=== PATIENT | female | born 1945 | race Caucasian/White ===

== ENCOUNTER 2020-10-08 19:21 | Inpatient (IN) | payer MEDICARE, OTHER ==
[~2020-10-08] VITALS: Ht 162.6 cm; Wt 134.1 kg
[2020-10-08 20:30] VITALS: BP 105/67; PULSE 133; TEMP 98.9
[2020-10-08] MEDS ORDERED: KLOR-CON SPRIN10 MEQ PO (20:31)
[2020-10-08] MEDS ORDERED: ELIQUIS 5MG PO (20:31)
[2020-10-08] MEDS ORDERED: PRINIVIL5 MG PO (20:31)
[2020-10-08] MEDS ORDERED: TIAZAC240 MG PO (20:32)
[2020-10-08] MEDS ORDERED: LASIX 40MG TABL40 MG PO (20:32)
[2020-10-08] MEDS ORDERED: LIPITOR 10MG10 MG PO (20:33)
[2020-10-08] MEDS ORDERED: ALBUTEROL0.83 MG/ML IH (20:34)
[2020-10-08] MEDS ORDERED: PLAVIX 75MG TAB75 MG PO (20:41)
[2020-10-08 20:47] LABS: CALCIUM 7.2 mg/dL (8.4-10.2); CREATININE, serum 10.53 (0.52-1.25); POTASSIUM 5.5 mmol/L (3.4-5.0)
[2020-10-08 21:16] LABS: ALBUMIN 3.3 gm/dL (3.5-5.0); BILIRUBIN,TOTAL 0.5 mg/dL (0.0-1.0); TOTAL PROTEIN 6.5 gm/dL (6.4-8.2)
[2020-10-08 22:30] VITALS: BP 106/83; PULSE 131
[2020-10-08 23:20] LABS: ARTERIAL BLD GAS TCO2 CT 14.9; ARTERIAL BLOOD GAS BASE EXCESS -12.9 (-2-2); ARTERIAL BLOOD GAS HCO3 13.8 meq/L (22-26); ARTERIAL BLOOD GAS PCO2 34.6 mmHg (35-45); ARTERIAL BLOOD GAS PO2 115.7 mmHg (80-100); ARTERIAL BLOOD GAS pH 7.22 (7.35-7.45)
--- NOTE | 2020-10-08 23:28 | NUR ---
Patient [place] [facility] [place] [facility] [place] to medical floor room 315 around 19:30 pm. Patient is very hardd of hearing. Patient alert and oriented to self only. Patient confused about time, place, and situation. Oriented patient to the room. Tyson catheter in place and draining dark tea color urine. +3 pitting edema to bilateral upper and lower extremities. Pannus, groin, and bottom have excoriation. Patient currently on oxygen 3L via NC. Breathing labored with inspiratory and expiratory wheezing noted. HR irregular with HR 130-140s. EKG shows A-fib RVR. Hospitalist HOLLI Alcocer made aware. Call light in reach. Will continue to monitor.
[2020-10-08 23:32] VITALS: BP 104/58; PULSE 149; TEMP 98.1
[2020-10-09] VITALS (691 sets, daily range): BP systolic 90–119; BP diastolic 40–44; PULSE 79–157; TEMP 97.5–99.7; O2SAT 76–100
[2020-10-09 01:00] LABS: ARTERIAL BLD GAS TCO2 CT 13.8; ARTERIAL BLOOD GAS BASE EXCESS -13.4 (-2-2); ARTERIAL BLOOD GAS HCO3 12.9 meq/L (22-26); ARTERIAL BLOOD GAS PCO2 31.3 mmHg (35-45); ARTERIAL BLOOD GAS pH 7.23 (7.35-7.45)
[2020-10-09 01:01] LABS: ARTERIAL BLOOD GAS PO2 150.5 mmHg (80-100)
[2020-10-09 02:16] LABS: COLLECTION METHOD CATHETER
[2020-10-09 02:17] LABS: MEAN CELL VOLUME 91 fl (80.0-100.0); MEAN CORPUSCULAR HGB CONC 32 g/dl (33.0-37.0); MEAN PLATELET VOLUME 9.3 fl (7.4-10.4); PLATELET COUNT 279 K/mm3 (130-400); REDCELL DISTRIBUTION WIDTH-CV 18.1 % (11.5-14.5)
[2020-10-09 02:21] LABS: HEMATOCRIT 26.3 % (37.0-47.0); HEMOGLOBIN 8.5 g/dl (12.5-16.0); MEAN CORPUSCULAR HEMOGLOBIN 29 pg (27.0-31.0)
[2020-10-09 02:24] LABS: INR 1.5 (0.8-3.0); PROTHROMBIN TIME 16.1 SECONDS (9.7-12.8)
[2020-10-09 02:25] LABS: MUCOUS Present /lpf; PH 5 (5-8); SQUAMOUS EPITHELIAL 0-2 /hpf; URINE APPEARANCE Cloudy; URINE BACTERIA Rare /hpf; URINE BILIRUBIN Negative (NEGATIVE); URINE BLOOD 3+ (NEGATIVE); URINE COLOR Yellow; URINE GLUCOSE Negative (NEGATIVE); URINE KETONE Negative (NEGATIVE); URINE LEUKOCYTE ESTERASE Trace (NEGATIVE); URINE NITRATE Negative (NEGATIVE); URINE PROTEIN(semi-quant) 2+ (NEGATIVE); URINE RBC >50 /hpf; URINE UROBILINOGEN Negative (NEGATIVE)
[2020-10-09 02:27] LABS: PARTIAL THROMBOPLASTIN TIME 31.5 SECONDS (26.0-37.0)
[2020-10-09 03:48] LABS: ANISOCYTOSIS 1+; BAND 10 % (0-10); HYPOCHROMIA 1+; LYMPHOCYTE 4 % (20.0-51.0); METAMYELOCYTE 1 % (0-0); NEUTROPHILS 84 % (42.0-75.2); POIKILOCYTOSIS 1+
[2020-10-09 03:49] LABS: OVALOCYTES 1+; PLATELET ESTIMATE NORMAL (NORMAL)
--- NOTE | 2020-10-09 04:24 | NUR ---
PATIENT ADMITTED TO ICU ROOM 6 AT 0032, TRANSFERRED TO ICU BED WITH 4 ASSIST CLEANED OF INCONTINENT LOOSE FOUL SMELLING BM AND RECTAL TUBE INSERTED AFTER EXPLAINING PROCEDURE TO PATIENT, TOLERATED WELL, BARRIER CREAM APPLIED TO MICHAEL AND BUTTOCKS AREA DUE TO DIFFUSE ERYTHEMA, LOWE CATHETER INTACT WITH CLOUDY YELLOW URINE PRESENT IN TUBING, PATIENT ALERT WITH EYES OPEN ORIENTED TO PERSON AND YEAR BUT UNABLE TO STATE MONTH, PLACE OR SITUATION. ABLE TO FOLLOW COMMANDS, AIR PUMPER EQUAL BUT WEAK ABLE TO PREFORM PUSH/PULL WITH BILATERAL LOWER EXTREMITIES BUT VERY WEAK, PERIPHERAL PULSES PALPABLE, PATIENT HEART RATE TACHYCARDIC ON MONITOR AND VIA AUSCULTATION, CHANDRAKANT RAZA PRESENT AND ORDERS BEING RECEIVED AND CARRIED OUT 0 ANESTHESIA AT BEDSIDE AND PLACED AT THIS TIME CONNECTED TO MONITOR, AND LEVELED 0238 SURGERY AT BEDSIDE AND PLACED CENTRAL LINE, PATIENT CONNECTED TO FOR CVP MONITORING WITH VALUE OF 18 REPORTED TO VIOLET STALLINGS ADDITIONAL ORDERS RECEIVED AND WILL BE INITIATED WHEN MEDICATIONS RECEIVED
[2020-10-09 04:52] LABS: ARTERIAL BLD GAS O2 SATURATION 96.3 % (92-100); ARTERIAL BLD GAS TCO2 CT 15.4; ARTERIAL BLOOD GAS BASE EXCESS -12.5 (-2-2); ARTERIAL BLOOD GAS HCO3 14.3 meq/L (22-26); ARTERIAL BLOOD GAS PCO2 36.1 mmHg (35-45); ARTERIAL BLOOD GAS PO2 89.1 mmHg (80-100); ARTERIAL BLOOD GAS pH 7.22 (7.35-7.45)
--- NOTE | 2020-10-09 05:00 | NUR ---
RESULTS OF ABG CALLED TO VIOLET RAZA APRN PER REQUEST
--- NOTE | 2020-10-09 07:20 | NUR ---
BEDSIDE SHIFT REPORT RECEIVED FROM ADRIANA ANNE. PATIENT IS RESTING COMFORTABLY IN BED WITH EYES OPEN. BICARB AND ALBUMIN RUNNING. VSS. LOWE CATHETER AND FECAL MANAGEMENT SYSTEM IN PLACE. TRIPLE LUMEN CATHETER AND ARTERIAL LIVE IN PLACE. ON BIPAP.
--- NOTE | 2020-10-09 07:48 | NUR ---
[address] RAMSEY DUE TO PATIENT'S B/P BEING LOW, UPDATED ON PATIENT HISTORY AND EVENTS UP TO THIS TIME, GIVEN VITAL SIGNS AND BRIEF ASSESSMENT, NEW ORDERS RECEIVED FOR ALBUMIN AND TO STOP BUMEX DRIP AT THIS TIME 0645 BUMEX DRIP STOPPED, AWAITING VERIFICATION BY PHARMACY FOR ALBUMIN INFUSION
--- NOTE | 2020-10-09 08:40 | NUR ---
SEAN MCDONALD FOR DR. MAR AT BEDSIDE. DISCUSSED PLAN OF CARE AND ABNORMAL LABS. RECOMMENDING DIALYSIS CATHETER PLACEMENT AND DIALIZING TODAY. SEAN FALCON WITH [facility] ALSO AT BEDSIDE. CALLED TO TELL ME THAT WE WILL BE DOING A NAPOLEON/CARDIOVERSION TODAY WELL.
--- NOTE | 2020-10-09 09:17 | NUR ---
DR. ROJAS AT BEDSIDE AND RECOMMENDING INTUBATION BECAUSE OF CONFUSION AND SOMNOLENCE. WILL BE CHANGING SOME BIPAP SETTINGS AND CHECKING ABGs AGAIN TODAY.
[2020-10-09 11:46] LABS: ARTERIAL BLD GAS O2 SATURATION 98.7 % (92-100); ARTERIAL BLD GAS TCO2 CT 15.1; ARTERIAL BLOOD GAS HCO3 14.2 meq/L (22-26); ARTERIAL BLOOD GAS PCO2 29.6 mmHg (35-45)
[2020-10-09 11:48] LABS: ARTERIAL BLOOD GAS PO2 135.2 mmHg (80-100)
--- NOTE | 2020-10-09 11:55 | NUR ---
CALLED PATIENT'S SISTER, JOSE, SHU TO MAINTAIN CONSENT FOR ALL OF PATIENT'S PROCEDURES TODAY. JOSE IS AGREEABLE TO BOTH PROCEDURES.
--- NOTE | 2020-10-09 15:00 | NUR ---
sanitation worker hosing machinery contacted patient's sister, Eugenie Perez #[phone] to discuss discharge planning. Patient is confused and not able to make her own decisions. Durable Power of sql developer forms are found in medical record and include making health and medical decisions. Eugenie stated that patient is and has four adult children (Aleksander Friend [phone], Florecita Friend [phone], Nik and Fabricio). Worker contacted Aleksander, who states he is aware that patient is hospitalized, however, hasn't spoken to his mother since her was 16 years old. Aleksander states that all of the children are estranged from patient and haven't spoken with her for over 10 years. Aleksander stated he was aware that patient's sister was her spokes person for decisions. sanitation worker hosing machinery spoke with sister, Eugenie, and confirmed that patient is homeless and cannot stay with Eugenie. Eugenie stated that she cannot come and visit from [place] as she does not have a car. Estela and social services had a goals of care conversation with Eugenie. Eugenie states she discussed patient's wishes previously when she was alert and patient stated she wanted to be DNR and did not want to be placed on a ventilator.
--- NOTE | 2020-10-09 15:20 | NUR ---
PERFORMED NAPOLEON/CARDIOVERSION ON PATIENT WITH HELP OF RADIOLOGY, TERRIE ANN PA AND ANESTHESIOLOGY. PATIENT'S SISTER AND DPOA HAD GIVEN VERBAL CONSENT FOR PROCEDURE. PROCEDURE BEGAN AT 1500 WITH PROPOFOL AND SUCCITYLCOLINE PUSHED. SHOCK WAS DELIVER AT 1502 WITH 200J AND PATIENT CONVERTED TO NORMAL SYNUS RHYTHM IN THE 80s. PROCEDURE WAS COMPLETED AT 1505.
--- NOTE | 2020-10-09 16:00 | NUR ---
UPDATED DR. ROJAS ON ABG RESULTS AND ON PROCEDURES DONE TODAY.
[2020-10-09 16:06] LABS: ARTERIAL BLD GAS O2 SATURATION 98.6 % (92-100); ARTERIAL BLD GAS TCO2 CT 16.6; ARTERIAL BLOOD GAS BASE EXCESS -9.7 (-2-2); ARTERIAL BLOOD GAS HCO3 15.6 meq/L (22-26); ARTERIAL BLOOD GAS pH 7.31 (7.35-7.45)
[2020-10-09 16:08] LABS: ARTERIAL BLOOD GAS PO2 123.5 mmHg (80-100)
[2020-10-09 16:47] LABS: MEAN CELL VOLUME 92 fl (80.0-100.0); MEAN CORPUSCULAR HGB CONC 32 g/dl (33.0-37.0); MEAN PLATELET VOLUME 9.5 fl (7.4-10.4); PLATELET COUNT 244 K/mm3 (130-400); RED BLOOD COUNT 2.77 M/mm3 (4.10-5.30); REDCELL DISTRIBUTION WIDTH-CV 17.8 % (11.5-14.5)
[2020-10-09 16:51] LABS: ALBUMIN 3.1 gm/dL (3.5-5.0); CALCIUM 7.1 mg/dL (8.4-10.2); CREATININE, serum 9.25 (0.52-1.25); POTASSIUM 4.7 mmol/L (3.4-5.0)
[2020-10-09 16:59] LABS: HEMATOCRIT 25.4 % (37.0-47.0); HEMOGLOBIN 8.2 g/dl (12.5-16.0); MEAN CORPUSCULAR HEMOGLOBIN 30 pg (27.0-31.0)
[2020-10-09 17:14] LABS: PHOSPHOROUS 8.8 mg/dL (2.5-4.5)
[2020-10-09] MEDS ORDERED: LANOXIN 0.25M0.25 MG PO (17:29)
[2020-10-09] MEDS ORDERED: TOPROL XL 25MG25 MG PO (17:32)
--- NOTE | 2020-10-09 18:23 | NUR ---
PATIENT TOLERATED HER 1ST HD TX WITH 700 ML FLUID REMOVAL TODAY. NEXT PLANNED HD TX TOMORROW, Friday10/10/20 @ 0800.
[2020-10-09 19:09] LABS: BAND 11 % (0-10); BURR CELLS 1+; LYMPHOCYTE 5 % (20.0-51.0); METAMYELOCYTE 2 % (0-0); MYELOCYTE 1 % (0-0); NEUTROPHILS 76 % (42.0-75.2); PLATELET ESTIMATE NORMAL (NORMAL)
[2020-10-09 19:11] LABS: HYPOCHROMIA 1+; OVALOCYTES 1+
[2020-10-09 22:30] LABS: HEPATITIS B SURFACE ANTIGEN Negative (Negative)
[2020-10-09 22:32] LABS: HEPATITIS B SURFACE ANTIBODY <2.0 (()); HEPATITIS C VIRUS ANTIBODY Negative (Negative)
[2020-10-10] VITALS (750 sets, daily range): BP systolic 90–1058; BP diastolic 53–72; PULSE 74–100; TEMP 97.8–98.9; O2SAT 71–100
--- NOTE | 2020-10-10 02:39 | NUR ---
PER DR. RAMSEY'S NOTE BUMEX GTT CONTINUES TO BE HELD, PATIENT B/P CONTINUES TO BE ON LOWER END OF NORMALS
[2020-10-10 03:59] LABS: MEAN CELL VOLUME 92 fl (80.0-100.0); MEAN CORPUSCULAR HGB CONC 33 g/dl (33.0-37.0); MEAN PLATELET VOLUME 9.8 fl (7.4-10.4); PLATELET COUNT 236 K/mm3 (130-400); RED BLOOD COUNT 2.75 M/mm3 (4.10-5.30); REDCELL DISTRIBUTION WIDTH-CV 17.7 % (11.5-14.5)
[2020-10-10 04:04] LABS: HEMATOCRIT 25.2 % (37.0-47.0); HEMOGLOBIN 8.2 g/dl (12.5-16.0); MEAN CORPUSCULAR HEMOGLOBIN 30 pg (27.0-31.0)
[2020-10-10 04:15] LABS: CALCIUM 7.4 mg/dL (8.4-10.2); CREATININE, serum 6.53 (0.52-1.25); MAGNESIUM 1.5 mg/dL (1.6-2.3); PHOSPHOROUS 6.6 mg/dL (2.5-4.5); POTASSIUM 4.1 mmol/L (3.4-5.0)
[2020-10-10 04:33] LABS: BAND 2 % (0-10); HYPOCHROMIA 1+; LYMPHOCYTE 10 % (20.0-51.0); METAMYELOCYTE 1 % (0-0); NEUTROPHILS 82 % (42.0-75.2); POIKILOCYTOSIS 1+
[2020-10-10 04:34] LABS: ANISOCYTOSIS 1+; OVALOCYTES 1+; PLATELET ESTIMATE NORMAL (NORMAL)
[2020-10-10 04:38] LABS: ARTERIAL BLD GAS O2 SATURATION 98.9 % (92-100); ARTERIAL BLD GAS TCO2 CT 21.3; ARTERIAL BLOOD GAS BASE EXCESS -4.7 (-2-2); ARTERIAL BLOOD GAS HCO3 20.2 meq/L (22-26); ARTERIAL BLOOD GAS pH 7.37 (7.35-7.45)
[2020-10-10 05:41] LABS: ARTERIAL BLOOD GAS PO2 144.1 mmHg (80-100)
--- NOTE | 2020-10-10 09:40 | NUR ---
SISTER, JOSE, CALLS AT THIS TIME FOR UPDATE. SHE IS VERY EMOTIONAL ON THE PHONE. PLAN OF CARE DISCUSSED AND QUESTIONS ANSWERED.
[2020-10-10 09:41] LABS: CLOSTRIDIUM DIFF A/B NEG; CLOSTRIDIUM DIFF A/B INTERP NonToxigenic C.diff
--- NOTE | 2020-10-10 09:44 | NUR ---
MISS CHAMBERS IS RESTING COMFRTABLY ON MORNING ASSESSMENT AND TOLERATING BIPAP WELL. SHE IS ALERT AND ORIENTATED TO SELF. FOLLOWS COMMANDS AND ACTIVILY PARTICIPATES IN MORNING HYGIENE CARE. MISS CHAMBERS TOOK HER ORAL PO MEDS WITHOUT ISSUE SWALLOWING.
--- NOTE | 2020-10-10 12:58 | NUR ---
Patient tolerated her 2nd HD tx with 1L of fluid removed. Next HD tx pending labs.
--- NOTE | 2020-10-10 14:04 | NUR ---
AT 1350 MISS FRIEND WHEN INTO A APPROX 1 MIN RUN OF VTACH. THE PATIENT WAS SYMPTOMATIC TO THE VTACH AND APPEARED TO HAVE DIFFICULTY BREATHING AND BECAME RED IN THE FACE. THE ICU TEAM LAID HER FLAT AND SHE WAS ABLE TO CONVERT HERSELF AND CAME TO AND WAS ABLE TO ANSWER QUESTIONS. THE PATIENT STATED THAT SHE FELT DIZZY. DR. CARRILLO WAS NOTIFIED VIA PHONE WITH VERBAL ORDERS OF STAT LABS,EKG, TROP, MAG, AND PHOSPHORUS TO BE PULLED. PT IS NOW RESTING COMFRTABLY IN BED AND WILL CONTINUE TO MONITOR.
[2020-10-10 14:25] LABS: MEAN CELL VOLUME 91 fl (80.0-100.0); MEAN CORPUSCULAR HGB CONC 32 g/dl (33.0-37.0); MEAN PLATELET VOLUME 9.5 fl (7.4-10.4); PLATELET COUNT 224 K/mm3 (130-400); RED BLOOD COUNT 2.84 M/mm3 (4.10-5.30); REDCELL DISTRIBUTION WIDTH-CV 18.2 % (11.5-14.5)
[2020-10-10 14:29] LABS: HEMATOCRIT 25.7 % (37.0-47.0); HEMOGLOBIN 8.3 g/dl (12.5-16.0); MEAN CORPUSCULAR HEMOGLOBIN 29 pg (27.0-31.0)
[2020-10-10 14:31] LABS: CALCIUM 7.7 mg/dL (8.4-10.2); CREATININE, serum 4.06 (0.52-1.25); POTASSIUM 3.7 mmol/L (3.4-5.0)
[2020-10-10 14:45] LABS: BAND 13 % (0-10); LYMPHOCYTE 17 % (20.0-51.0); METAMYELOCYTE 1 % (0-0); NEUTROPHILS 64 % (42.0-75.2); PLATELET ESTIMATE NORMAL (NORMAL)
[2020-10-10 17:04] LABS: MAGNESIUM 1.8 mg/dL (1.6-2.3); PHOSPHOROUS 4.4 mg/dL (2.5-4.5)
[2020-10-10 17:23] LABS: TROPONIN-I < 0.012 ng/mL (0.000-0.035)
--- NOTE | 2020-10-10 22:30 | NUR ---
ALERT TO SELF. RT PUTS PT ON OXYMASK- PM MEDS GIVEN ALONG WITH ENSURE FOR NUTRITION. ASSESSMENT COMPLETE. PT REPOSITIONED TO BACK. RECTAL TUBE AND LOWE SECURE AND INTACT. PITTING EDEMA TO LOWER EXT 3+. RT IJ, LT IJ AND RT HAND FLUSHED AND CLEAN. MICHAEL AREA REDENED, BARRIER CRM APPLIED. TOLERATED PILLS W SIPS. CDIFF PRECAUTION, PPE WORN. RT PLACED BACK ON BIPAP AFTER PILLS AND ENSURE. CALL LIGHT WI REACH. CLOSE MONITORING MAINTAINED.
[2020-10-11] VITALS (527 sets, daily range): BP systolic 94–119; BP diastolic 51–67; PULSE 87–106; TEMP 97.8–98.8; O2SAT 52–100
--- NOTE | 2020-10-11 00:34 | NUR ---
REPOSITIONED IN BED. NEURO ASSESSED. PT RESTING W EYES CLOSED ON BIPAP, DENIES ANY PAIN.
[2020-10-11 05:10] LABS: ARTERIAL BLD GAS O2 SATURATION 98.5 % (92-100); ARTERIAL BLD GAS TCO2 CT 24.9; ARTERIAL BLOOD GAS BASE EXCESS -0.7 (-2-2); ARTERIAL BLOOD GAS HCO3 23.7 meq/L (22-26); ARTERIAL BLOOD GAS PCO2 38.1 mmHg (35-45); ARTERIAL BLOOD GAS pH 7.41 (7.35-7.45)
[2020-10-11 05:11] LABS: ARTERIAL BLOOD GAS PO2 126.3 mmHg (80-100)
[2020-10-11 05:13] LABS: MEAN CELL VOLUME 92 fl (80.0-100.0); MEAN CORPUSCULAR HGB CONC 32 g/dl (33.0-37.0); MEAN PLATELET VOLUME 9.8 fl (7.4-10.4); PLATELET COUNT 244 K/mm3 (130-400); RED BLOOD COUNT 2.86 M/mm3 (4.10-5.30); REDCELL DISTRIBUTION WIDTH-CV 18.2 % (11.5-14.5)
[2020-10-11 05:21] LABS: HEMATOCRIT 26.4 % (37.0-47.0); HEMOGLOBIN 8.5 g/dl (12.5-16.0); MEAN CORPUSCULAR HEMOGLOBIN 30 pg (27.0-31.0)
--- NOTE | 2020-10-11 05:32 | NUR ---
RESTED WITHOUT INCIDENT. REPOSITIONED OFTEN. COOPERATIVE AND CALM. REMAINS ON BIPAP.
[2020-10-11 05:37] LABS: CALCIUM 7.8 mg/dL (8.4-10.2); CREATININE, serum 3.58 (0.52-1.25); POTASSIUM 3.6 mmol/L (3.4-5.0)
[2020-10-11 06:15] LABS: ANISOCYTOSIS 1+; BAND 7 % (0-10); LYMPHOCYTE 15 % (20.0-51.0); METAMYELOCYTE 2 % (0-0); NEUTROPHILS 73 % (42.0-75.2); POIKILOCYTOSIS 1+
--- NOTE | 2020-10-11 14:30 | NUR ---
At approximately 1430 patient entered narrow complex tachycardic rhythm. She c/o being dizzy. She had recently been given breathing treatment and was sitting on edge of bed working with therapy at the time. Patient was placed supine and encouraged to do vagal maneuvers to slow rate. This was unsuccessful. EKG confirmed Afib RVR. CHANDRAKANT Vo with cardiology called. Order received for Amiodarone bolus. Bolus given and no change occurred. Orders received to call [facility] for Cardioversion. Patient awake and alert during this time. She verbalizes understanding. Waiting on Anest[facility] to call back.
--- NOTE | 2020-10-11 15:57 | NUR ---
MISS CHAMBERS AT APPROX 1415 WENT INTO AFIB RVR COMFIRMED BY EKG. TERRIE SANCHEZ STALLINGS WAS NOTIFIED. ELECTIVE CARDIOVERSION WAS PERFORMED WITH MISS SAUNDERS VERBAL CONSENT. AT 1539 KETAMINE 10 MG, PROPOFOL 80 MG, LIDOCAIN 40 MG WAS ADMINISTERED. AT 1540 200 J WAS DELIVERED, PATIENT DID NOT CONVERT AND RESUMED A FIB RVR AT A RATE OF 145 AND A 2 MINUTE WAIT TIME WAS INITIATED. AT 1542 200J WAS DELIVERED AND PATIENT AGAIN, DID NOT CONVERT AND RESUMED A RYTHM OF A FIB RVR RATE OF 148. AT 1544, 200 J WAS DELIVERED AND PATIENT THEN CONVERTED TO A SINUS RYTHM AT A RATE OF 102 MISS CHAMBERS WAS EASILY AROUSED AFTER CARDIOVERSION.
--- NOTE | 2020-10-11 16:46 | NUR ---
ADRIANA WOOD WITH DIALYSIS COMES TO CHANGE DRESSING ON HEMODIALYSIS CATHETER AT THIS TIME.
--- NOTE | 2020-10-11 18:35 | NUR ---
Patient arrived to room 310 @ approx. 1835 from ICU.
[2020-10-12 04:45] VITALS: BP 90/43; PULSE 97; TEMP 98.2
[2020-10-12 06:31] LABS: CALCIUM 7.7 mg/dL (8.4-10.2); CREATININE, serum 2.42 (0.52-1.25); MAGNESIUM 1.6 mg/dL (1.6-2.3); POTASSIUM 3.3 mmol/L (3.4-5.0)
--- NOTE | 2020-10-12 06:35 | NUR ---
Patient has slept comfortably throughout the night. She has worn 2 liters 02 with no increased work of breathing, satting 98%. She complained of left buttock pain once; she was readjusted and provided Tylenol. Rectal tube and arzola catheter still draining well. Call light in reach and bed alarm set.
[2020-10-12 06:36] LABS: MEAN CORPUSCULAR HGB CONC 31 g/dl (33.0-37.0); PLATELET COUNT 221 K/mm3 (130-400); RED BLOOD COUNT 2.72 M/mm3 (4.10-5.30); REDCELL DISTRIBUTION WIDTH-CV 18.5 % (11.5-14.5)
[2020-10-12 06:37] LABS: HEMATOCRIT 26.4 % (37.0-47.0); HEMOGLOBIN 8.1 g/dl (12.5-16.0); MEAN CELL VOLUME 97 fl (80.0-100.0); MEAN CORPUSCULAR HEMOGLOBIN 30 pg (27.0-31.0)
--- NOTE | 2020-10-12 07:35 | NUR ---
This RN entered the patient's room to do 0800 VS, and found the patient's right dialysis catheter to be bleeding through the pressure dressing. This RN grabbed the overnight nurse for the patient and pressure was placed on the sight. This RN notified warehouse engineer and was instructed to hold pressure for 5-10mins and then pressure dress again with microfoam. Bleeding stopped and the patient was cleaned up. VS were stable, BP was soft 90s/40s. film processing shift supervisor RN notified of the incident via voicemail. This RN placed the patient on q30min VS for the next 4hours to be safe.
[2020-10-12 08:02] VITALS: BP 93/49; PULSE 96; TEMP 98.2
[2020-10-12 08:23] LABS: ANISOCYTOSIS 1+; BAND 13 % (0-10); EOSINOPHIL 1 % (0-4); HYPOCHROMIA 1+; LYMPHOCYTE 9 % (20.0-51.0); NEUTROPHILS 71 % (42.0-75.2); PLATELET ESTIMATE NORMAL (NORMAL)
[2020-10-12 12:00] VITALS: BP 94/54; PULSE 106; TEMP 98.3
--- NOTE | 2020-10-12 14:53 | NUR ---
roll scale worker gave a referral to Markus at [facility] and faxed clinical information.
[2020-10-12 16:24] VITALS: BP 96/54; PULSE 123; TEMP 97.9
--- NOTE | 2020-10-12 18:08 | NUR ---
Patient cleaned up twice today from rectal tube leaking. Seems to be more alert according to PT. Patient is slow to respond, and very pleasant to speak with.
[2020-10-12 19:30] VITALS: BP 109/56; PULSE 105; TEMP 97.6
--- NOTE | 2020-10-12 20:00 | NUR ---
Assessment complete. Patient is alert and partially oriented with no complaints of pain. She is tolerating breathing well on 2 liters 02, satting 97%. Extensive edema is noted in extremities, with 2-3+ pitting. Rectal tube and arzola catheter still in place and draining well. Patient is very weak and unable to move very much on her own; Q2 turn schedule initiated. Contact precautions in place for CDIFF. Bed alarm set and call light in reach.
[2020-10-13] VITALS (8 sets, daily range): BP systolic 90–115; BP diastolic 37–74; PULSE 72–155; TEMP 97.5–102.1
--- NOTE | 2020-10-13 02:13 | NUR ---
Patient currently resting in bed. She has had no complaints overnight. She still wears 2 liters 02 and is satting 95%. Tyson and rectal tube remain in place. Comfort measures provided, bed alarm set and call light within reach.
[2020-10-13 07:55] LABS: CALCIUM 7.6 mg/dL (8.4-10.2); CREATININE, serum 1.68 (0.52-1.25); MAGNESIUM 1.4 mg/dL (1.6-2.3); POTASSIUM 3.2 mmol/L (3.4-5.0)
[2020-10-13 07:57] LABS: MEAN CELL VOLUME 98 fl (80.0-100.0); MEAN CORPUSCULAR HGB CONC 31 g/dl (33.0-37.0); MEAN PLATELET VOLUME 10.1 fl (7.4-10.4); PLATELET COUNT 231 K/mm3 (130-400); REDCELL DISTRIBUTION WIDTH-CV 18.5 % (11.5-14.5)
[2020-10-13 08:10] LABS: HEMATOCRIT 26.4 % (37.0-47.0); HEMOGLOBIN 8.1 g/dl (12.5-16.0); MEAN CORPUSCULAR HEMOGLOBIN 30 pg (27.0-31.0)
--- NOTE | 2020-10-13 08:18 | NUR ---
Shift assessment complete. Pt lying in bed, A&Ox4. No appetite this morning, just taking sips of water. Reports SOA due to stuffy nose. NC on at 2.5 lpm O2 w/sats 96%. Heart RRR. Lungs CTA. Tyson in place w/clear rios output. Rectal tube w/loose brown output. Left triple lumen IJ w/o s/s complication. Right chest dialysis cath removal site w/gauze, CDI. Pt denies needs at this time. Continuing to monitor.
--- NOTE | 2020-10-13 09:23 | NUR ---
Rectal tube leaking semi-liquid stool. Full bed bath and bed change done. Rectal tube remains in place and draining well at this time. Continuing to monitor.
--- NOTE | 2020-10-13 11:57 | NUR ---
This RN notified by television production clerk that pt's heart rate in 150s. Assessed pt who denied increased SOA, chest pain, dizziness, palpitations. All other vitals stable. Nkechi ESTRADA notified and EKG ordered. EKG showed Afib RVR w/rate in 160s. Heart rate per tele 160-180s. Nkechi ESTRADA notified again and called cardiology. Tavo STALLINGS to see pt and make further recommendations.
[2020-10-13 13:16] LABS: C-REACTIVE PROTEIN 4.4 mg/dL (0.0-0.9)
[2020-10-13 13:49] LABS: THYROID STIMULATING HORMONE 5.319 uIU/mL (0.465-4.680)
--- NOTE | 2020-10-13 16:16 | NUR ---
PALLAVI contacted and faxed updates to Markus at [facility].
[2020-10-13 17:36] LABS: ARTERIAL BLD GAS O2 SATURATION 97.6 % (92-100); ARTERIAL BLD GAS TCO2 CT 29.9; ARTERIAL BLOOD GAS BASE EXCESS 4.9 (-2-2); ARTERIAL BLOOD GAS HCO3 28.7 meq/L (22-26); ARTERIAL BLOOD GAS PCO2 39.1 mmHg (35-45); ARTERIAL BLOOD GAS PO2 90.5 mmHg (80-100); ARTERIAL BLOOD GAS pH 7.48 (7.35-7.45)
--- NOTE | 2020-10-13 18:57 | NUR ---
Vancomycin Initial Dosing Pharmacy Note Ordering provider: Tiny Whitten M, MD Indication/duration: Fevers, 7 days LABS: SCr 1.68, CrCl~37, GFR 30 Recommendation: Start Vancomycin 2 gm IV q24h. Pharmacy will continue to closely monitor and adjust dose/frequency/trough as renal function improves. Loading dose: 2 grams Maintenance dose: 2 grams every 24 hours Trough goal: 15-20 ug/mL
--- NOTE | 2020-10-13 19:54 | NUR ---
Report received from ADRIANA Sal. Patient currently resting in bed on 2 liters 02. HR is 120-140's at this time. Will continue to monitor.
--- NOTE | 2020-10-13 20:00 | NUR ---
Assessment complete. Patient is pleasant and alert but not oriented. She has no complaints of pain. She has just been set up with her dinner tray and she eats independently with no difficulties swallowing. HR has been 140's-160's and this RN is notified by tele; SEAN Avendaño is notified. Cardizem gtt is infusing at 5 ml/hr and digoxin/amiodarone are administered as scheduled. 3+ edema is noted on all extremities. Patient satting 95% on 2 liters oxygen. Will continue to monitor HR. Call light in reach.
[2020-10-14 04:24] VITALS: BP 106/51; PULSE 81; TEMP 98
[2020-10-14 06:29] LABS: COLLECTION METHOD CATHETER
[2020-10-14 06:48] LABS: BUDDING YEAST Present /hpf; MUCOUS Present /lpf; PH 5 (5-8); SQUAMOUS EPITHELIAL None Seen /hpf; URINE APPEARANCE Hazy; URINE BACTERIA Many /hpf; URINE BILIRUBIN Negative (NEGATIVE); URINE BLOOD 2+ (NEGATIVE); URINE COLOR Yellow; URINE GLUCOSE Negative (NEGATIVE); URINE KETONE Negative (NEGATIVE); URINE LEUKOCYTE ESTERASE 2+ (NEGATIVE); URINE NITRATE Negative (NEGATIVE); URINE PROTEIN(semi-quant) Negative (NEGATIVE); URINE UROBILINOGEN Negative (NEGATIVE)
[2020-10-14 07:01] LABS: MEAN CELL VOLUME 98 fl (80.0-100.0); MEAN CORPUSCULAR HGB CONC 31 g/dl (33.0-37.0); MEAN PLATELET VOLUME 10.1 fl (7.4-10.4); PLATELET COUNT 242 K/mm3 (130-400); RED BLOOD COUNT 2.78 M/mm3 (4.10-5.30)
[2020-10-14 07:06] LABS: HEMATOCRIT 27.1 % (37.0-47.0); HEMOGLOBIN 8.3 g/dl (12.5-16.0); MEAN CORPUSCULAR HEMOGLOBIN 30 pg (27.0-31.0)
[2020-10-14 07:16] LABS: CALCIUM 7.4 mg/dL (8.4-10.2); CREATININE, serum 1.29 (0.52-1.25); MAGNESIUM 1.6 mg/dL (1.6-2.3); POTASSIUM 3.3 mmol/L (3.4-5.0)
[2020-10-14 07:28] LABS: INR 1.7 (0.8-3.0); PROTHROMBIN TIME 18.4 SECONDS (9.7-12.8)
[2020-10-14 08:05] LABS: BAND 16 % (0-10); LYMPHOCYTE 14 % (20.0-51.0); METAMYELOCYTE 1 % (0-0); NEUTROPHILS 67 % (42.0-75.2)
[2020-10-14 08:06] LABS: HYPOCHROMIA 3+; PLATELET ESTIMATE NORMAL (NORMAL)
[2020-10-14 08:07] LABS: MICROCYTOSIS 1+
--- NOTE | 2020-10-14 08:16 | NUR ---
Vancomycin Follow-up Pharmacy Note Current regimen: Vancomycin 2 gm IV q24h Adjustments: Changing Vancomycin to 1.5 gm IV q12h with improvment in renal function. Pharmacy will continue to closely monitor and check a Vancomycin trough prior to the 4th total dose on 10/15/20.
[2020-10-14 08:29] VITALS: BP 129/93; PULSE 88; TEMP 98.8
--- NOTE | 2020-10-14 08:40 | NUR ---
Shift assessment complete. Pt sitting up in bed. A&Ox4 but forgetful. Reports nausea this mornings and zofran given per orders. Heart RRR, Lungs CTA. Denies pain. 3+ edema to BLE and right hand. Hands and feet elevated on pillows. Pt denies further needs at this time. Continuing to monitor.
[2020-10-14 11:05] VITALS: BP 123/54; PULSE 83; TEMP 98.5
[2020-10-14 15:38] VITALS: BP 86/44; PULSE 92; TEMP 99.2
--- NOTE | 2020-10-14 15:46 | NUR ---
Rectal tube leaking into bed w/loose brown stool. Checked placement and added 5 mls NS to balloon. Full bed change and bed bath done. Pt beginning to get reddened areas to thighs and pannus, barrier cream applied. Repositioned pt in bed. Call light in reach.
[2020-10-14 20:56] VITALS: BP 100/46; PULSE 100; TEMP 99
[2020-10-15] VITALS (7 sets, daily range): BP systolic 96–114; BP diastolic 44–52; PULSE 79–89; TEMP 97.3–99.2
[2020-10-15 07:35] LABS: MEAN CELL VOLUME 101 fl (80.0-100.0); MEAN CORPUSCULAR HGB CONC 29 g/dl (33.0-37.0); MEAN PLATELET VOLUME 10.6 fl (7.4-10.4); PLATELET COUNT 256 K/mm3 (130-400); RED BLOOD COUNT 2.67 M/mm3 (4.10-5.30); REDCELL DISTRIBUTION WIDTH-CV 17.8 % (11.5-14.5)
[2020-10-15 07:37] LABS: HEMOGLOBIN 7.9 g/dl (12.5-16.0); MEAN CORPUSCULAR HEMOGLOBIN 30 pg (27.0-31.0)
[2020-10-15 07:44] LABS: CALCIUM 7.1 mg/dL (8.4-10.2); CREATININE, serum 1.18 (0.52-1.25); POTASSIUM 3.2 mmol/L (3.4-5.0)
[2020-10-15 08:11] LABS: BAND 13 % (0-10); LYMPHOCYTE 3 % (20.0-51.0); NEUTROPHILS 82 % (42.0-75.2); PLATELET ESTIMATE NORMAL (NORMAL)
[2020-10-15 08:12] LABS: HYPOCHROMIA 1+
[2020-10-15 08:13] LABS: OVALOCYTES 1+; SCHISTOCYTES 1+
--- NOTE | 2020-10-15 09:37 | NUR ---
SHIFT ASSESSMENT PREFORMED. SCHEDULED MEDICATIONS GIVEN. LOWE CATHETER IN, SECUREMENT DEVICE IN PLACE, NO KINKS IN TUBING. RECTAL TUBE IN PLACE, NO LEAKING NOTED. PATIENT DENIES AND PAIN, DISCOMFORT, N/V, OR FURTHER NEEDS AT THIS TIME. CURRENTLY REQUIRING 2 L OF O2 VIA NASAL CANNULA. CALL LIGHT IN REACH. FALL PRECAUTIONS IN PLACE.
--- NOTE | 2020-10-15 10:07 | NUR ---
PATIENT A&O X3.
--- NOTE | 2020-10-15 11:06 | NUR ---
Vancomycin Follow-up Pharmacy Note Current regimen: Vancomycin 1.5 gm IV q12h Vancomycin trough: 21.6 Adjustments: Will hold Vancomycin to allow trough level to clear, then restart with Vancomycin 1.25 gm IV q12h. Pharmacy will continue to closely monitor and check a new trough on 10/17/20.
--- NOTE | 2020-10-15 17:31 | NUR ---
PATIENT HAS HAD AN OK DAY. VSS CALL LIGHT IN REACH. FALL PRECAUTIONS IN PLACE.
--- NOTE | 2020-10-15 17:35 | NUR ---
PATIENT HAS BEEN RESTING A MAJORITY OF THE DAY. VSS. RECTAL TUBE AND LOWE CATHETER IN PLACE. PATIENT DENIES ANY PAIN, DISCOMFORT, OR FURTHER NEEDS AT THIS TIME. CALL LIGHT IN REACH. FALL PRECAUTIONS IN PLACE.
--- NOTE | 2020-10-15 21:00 | NUR ---
Shift assessment completed. Patient A/Ox3. Patient denies any pain or discomfort. Patient currently on oxygen 2L via NC. Breathing even and unlabored. Bilateral lower extremities +3 pitting edema present. Tyson patent and draining clear yellow urine. Rectal tube in place and draining watery/loose brown BM. Left IJ triple lumen site dressing C/D/I. All scheduled meds given per APR. Call light in reach. Fall precautions maintained. Will continue to monitor.
--- NOTE | 2020-10-15 23:40 | NUR ---
Patient use call light to call for nurse and reports having trouble breathing. SPO2 93-94% on 2L via NC at this time. Called RT for breathing TX. After a while, patient reports having trouble swallow well. HOB maintain elevated. Called SEAN Nichole and updated patient's condition. Per SEAN Nichole, we will keep her NPO for now and will have ST to evaluate her. Call light in reach. Will continue to monitor.
[2020-10-16 03:16] VITALS: BP 104/53; PULSE 91; TEMP 97.8
[2020-10-16 06:37] LABS: BASO # 0.1 (0.0-0.2); BASO % 0.4 % (0.0-2.0); EOS # 0.2 (0.0-0.7); EOS % 1.2 % (0-4.0); GRAN # 9.9 (1.4-6.5); GRAN % 79.8 % (42.2-75.2); LYMPH % 8.2 % (20.0-51.0); MEAN CELL VOLUME 100 fl (80.0-100.0); MEAN CORPUSCULAR HGB CONC 29 g/dl (33.0-37.0); MEAN PLATELET VOLUME 10.3 fl (7.4-10.4); MONO # 1.1 (0.1-0.6); PLATELET COUNT 319 K/mm3 (130-400); RED BLOOD COUNT 2.76 M/mm3 (4.10-5.30); REDCELL DISTRIBUTION WIDTH-CV 17.3 % (11.5-14.5)
[2020-10-16 06:39] LABS: HEMATOCRIT 27.7 % (37.0-47.0); HEMOGLOBIN 8.1 g/dl (12.5-16.0); MEAN CORPUSCULAR HEMOGLOBIN 29 pg (27.0-31.0)
[2020-10-16 06:46] LABS: CALCIUM 7.3 mg/dL (8.4-10.2); CREATININE, serum 1.28 (0.52-1.25); MAGNESIUM 1.2 mg/dL (1.6-2.3); POTASSIUM 3.5 mmol/L (3.4-5.0)
[2020-10-16 07:29] VITALS: BP 106/46; PULSE 84; TEMP 98.8
--- NOTE | 2020-10-16 08:00 | NUR ---
PT HAS FLAT AFFECT, NOT RESPONDING TO CONVERSATION, REPORTS BEING [place], NPO STATUS ENFORCED, IV MEDICATIONS GIVEN, NO OTHER NEEDS
[2020-10-16 13:10] VITALS: BP 121/56; PULSE 83; TEMP 98.1
--- NOTE | 2020-10-16 15:21 | NUR ---
Sw called [facility] at 3:20 pm to check on status of beds. No answer.
[2020-10-16 15:35] VITALS: BP 85/43; PULSE 85; TEMP 98.4
--- NOTE | 2020-10-16 17:44 | NUR ---
PT C/O THROAT DRYNESS DUE TO NPO STATUS, EXPLAINED NEED FOR SPEECH TO EVALUATE PT. PT USING SPONGES TO MOISTEN MOUTH. PT AOX4, DENIES PAIN, DID NOT GET OUT OF BED, APPEARS DEPRESSED, VERY LITTLE CONVERSATION THROUGHOUT SHIFT.
[2020-10-16 19:43] VITALS: BP 124/46; PULSE 84; TEMP 97.5
--- NOTE | 2020-10-16 22:39 | NUR ---
Patient A/Ox3. Patient denies any pain or discomfort. Patient currently NPO until ST evaluation for dysphagia. All PO meds hold due to NPO. Tyson catheter patent and draining yellow urine. Rectal tube in place and draining dark brown loose BM. Left IJ site C/D/I. Call light in reach. Bed alarms on. Will continue to monitor.
[2020-10-16 23:35] VITALS: BP 115/52; PULSE 88; TEMP 97.7
[2020-10-17 04:37] VITALS: BP 109/59; PULSE 87; TEMP 99.5
[2020-10-17 06:41] LABS: BASO # 0.1 (0.0-0.2); BASO % 0.6 % (0.0-2.0); EOS # 0.2 (0.0-0.7); EOS % 1.9 % (0-4.0); GRAN # 7.8 (1.4-6.5); GRAN % 77.6 % (42.2-75.2); LYMPH # 0.9 (1.2-3.4); LYMPH % 8.7 % (20.0-51.0); MEAN CELL VOLUME 100 fl (80.0-100.0); MEAN CORPUSCULAR HGB CONC 30 g/dl (33.0-37.0); MEAN PLATELET VOLUME 10.1 fl (7.4-10.4); MONO % 10.1 % (1.7-9.3); PLATELET COUNT 349 K/mm3 (130-400); RED BLOOD COUNT 2.78 M/mm3 (4.10-5.30)
[2020-10-17 06:42] LABS: HEMATOCRIT 27.8 % (37.0-47.0); HEMOGLOBIN 8.2 g/dl (12.5-16.0); MEAN CORPUSCULAR HEMOGLOBIN 29 pg (27.0-31.0)
[2020-10-17 06:52] LABS: CALCIUM 7.8 mg/dL (8.4-10.2); CREATININE, serum 1.23 (0.52-1.25); POTASSIUM 3.5 mmol/L (3.4-5.0)
--- NOTE | 2020-10-17 07:12 | NUR ---
REPORT RECEIVED FROM ADRIANA DEMARCO. PT ASLEEP IN BED. BREATHING REGULAR, UNLABORED. CALL ALMANZA IN REACH.
[2020-10-17 08:23] VITALS: BP 112/48; PULSE 82; TEMP 99
--- NOTE | 2020-10-17 10:01 | NUR ---
PT HAS GENERALIZED EDEMA. PITTING IN R HAND/ARM AND R LOW. EXTREMITIES. R RADIAL AND BILATERAL PEDAL PULSES NOT PALPATED. PT EXTREMITIES WARM, PINK, PERFUSING. PT R HAND SLIGHTLY WEAKER THAN LEFT UPON GRASP.
--- NOTE | 2020-10-17 10:10 | NUR ---
The hospitalist notified PALLAVI that the patient is cleared to dc to [facility]. PALLAVI notified and faxed updates to Markus at [facility]. Markus is working on getting a bed at the [facility] in [place]. PALLAVI contacted and updated the patient's sister, Eugneie. Eugenie is in agreement to the plan.
--- NOTE | 2020-10-17 12:09 | NUR ---
Markus, at [facility], reports that they are able to accept the patient at their [place] location today. SW notified the clinical team, the patient, and her sister (Eugenie). They were all in agreement to the plan. The patient is to discharge today, 10/17, to [facility] in [place]. Tranportation was scheduled at 1300, via [facility]. PALLAVI informed the patient, her RN, her sister (Eugenie), and Markus at [facility] of the time. They were all in agreement to the time. Eugenie also gave SW approval to sign the EMS Transfer Consent form on her behalf. No additional needs at this time.
--- NOTE | 2020-10-17 12:30 | NUR ---
REPORT CALLED TO [facility]. REQUESTED REMOVAL OF LOWE AND RECTAL TUBE BUT ASKED TO KEEP LIJ. NO OTHER NEEDS
--- NOTE | 2020-10-17 13:19 | NUR ---
PT DISCHARGED VIA EMS. TYLENOL GIVEN FOR COMPLAIN OF KNEE PAIN
--- NOTE | 2020-10-17 13:19 | NUR ---
D/C'd pt arzola and rectal tube. dang care provided.
== END 2020-10-17 13:22 | DRG 682 ==
LOC: MEDICAL 19:21 → ICU 19:39 → MEDICAL 10-09 00:08 → ICU 10-10 14:45 → MEDICAL 10-11 18:00 → ICU 10-11 18:00 → MEDICAL 10-11 23:00
PROVIDERS: Internal Medicine; Internal Medicine Nephrology; Internal Medicine Pulmonary Disease; Nurse Practitioner; Nurse Practitioner Family; Physician Assistant; Student in an Organized Health Care Education/Training Program; ADMIT Internal Medicine
PROC: 02HV33Z Insertion of Infusion Device into Superior Vena Cava, Percutaneous Approach (ICD-10-PCS; principal; 2020-10-09)
PROC: 5A1D70Z Performance of Urinary Filtration, Intermittent, Less than 6 Hours Per Day (ICD-10-PCS; 2020-10-09)
PROC: 5A09457 Assistance with Respiratory Ventilation, 24-96 Consecutive Hours, Continuous Positive Airway Pressure (ICD-10-PCS; 2020-10-09)
PROC: 5A2204Z Restoration of Cardiac Rhythm, Single (ICD-10-PCS; 2020-10-11)
DX: N17.9 Acute kidney failure, unspecified (principal); I50.23 Acute on chronic systolic (congestive) heart failure; A04.72 Enterocolitis due to Clostridium difficile, not specified as recurrent; N39.0 Urinary tract infection, site not specified; E87.1 Hypo-osmolality and hyponatremia; J96.11 Chronic respiratory failure with hypoxia; Z68.43 Body mass index [BMI] 50.0-59.9, adult; L03.116 Cellulitis of left lower limb; L03.115 Cellulitis of right lower limb; I48.20 Chronic atrial fibrillation, unspecified; G93.49 Other encephalopathy; I47.1 Supraventricular tachycardia; G72.81 Critical illness myopathy; E87.3 Alkalosis; E87.4 Mixed disorder of acid-base balance; I42.9 Cardiomyopathy, unspecified; E87.6 Hypokalemia; D64.9 Anemia, unspecified; E87.5 Hyperkalemia; I95.9 Hypotension, unspecified; R50.9 Fever, unspecified; D72.829 Elevated white blood cell count, unspecified; R53.81 Other malaise; E66.01 Morbid (severe) obesity due to excess calories; E87.70 Fluid overload, unspecified; I05.0 Rheumatic mitral stenosis; I25.10 Atherosclerotic heart disease of native coronary artery without angina pectoris; B96.21 Shiga toxin-producing Escherichia coli [E. coli] [STEC] O157 as the cause of diseases classified elsewhere; E83.42 Hypomagnesemia
CPT/HCPCS: 99223-AI; 99232-AI; 99233-AI; 99239; C9113; J0282; J0610; J0692; J1160; J1644; J1815; J2185; J2405; J2543; J2550; J2704; J3370; J3475; J3480; J7030; J7040; J7050; J7060; P9047